=== PATIENT | male | born 1990 | race American Indian/Alaskan Native ===

== ENCOUNTER 2016-10-21 21:51 | Emergency (ER) | payer OTHER ==
[2016-10-21 22:24] VITALS: BP 105/59
== END 2016-10-22 00:40 | disposition left against medical advice (07) ==
LOC: ED 21:51
DX: N50.812 Left testicular pain (principal); F17.200 Nicotine dependence, unspecified, uncomplicated; F12.90 Cannabis use, unspecified, uncomplicated; Z53.21 Procedure and treatment not carried out due to patient leaving prior to being seen by health care provider